=== PATIENT | male | born 1960 | race Caucasian/White ===

== ENCOUNTER 2018-03-13 22:25 | Emergency (ER) | payer MEDICARE ==
[~2018-03-13] VITALS: Ht 175.2 cm; Wt 56.7 kg
[~2018-03-13 22:25] MED LIST: ALBUTEROL0.09 MG/A2 INH; BACTRIM DS 8001 TA1 PO; DAYPRO600 M1 PO; DOXYCYCLINE HY100 M3 PO; KEFLEX500 MG PO; PREDNICOT20 MG PO; ROBAXIN750 MG PO; ROBITUSSIN AC 110 ML PO; TESSALON PERLE200 MG PO; VICODIN 5/500 505 MG PO; Vicodin 5/500 505 MG PO; XANAX0.25 MG PO; ZITHROMAX Z PA250 MG PO
[2018-03-13 22:58] VITALS: BP 181/92
== END 2018-03-13 23:39 | disposition left against medical advice (07) ==
LOC: ED 22:25
DX: S50.811A Abrasion of right forearm, initial encounter (principal); S50.812A Abrasion of left forearm, initial encounter; Z53.21 Procedure and treatment not carried out due to patient leaving prior to being seen by health care provider; W10.8XXA Fall (on) (from) other stairs and steps, initial encounter; Y93.89 Activity, other specified; Y92.89 Other specified places as the place of occurrence of the external cause; Y99.8 Other external cause status

== ENCOUNTER 2018-03-20 09:44 | Emergency (ER) | payer OTHER, MEDICARE ==
[~2018-03-20] VITALS: Ht 175.2 cm; Wt 101.6 kg
[2018-03-20 11:10] VITALS: BP 130/109
[2018-03-20] MEDS ORDERED: ROBAXIN500 M1 PO (14:42)
[2018-03-20] MEDS ORDERED: IBUPROFEN600 MG PO (14:42)
== END 2018-03-20 14:56 | disposition home or self-care (01) ==
LOC: ED 09:44
DX: S13.4XXA Sprain of ligaments of cervical spine, initial encounter (principal); M25.551 Pain in right hip; M54.6 Pain in thoracic spine; M54.5 Low back pain; Z88.5 Allergy status to narcotic agent; V49.88XA Car occupant (driver) (passenger) injured in other specified transport accidents, initial encounter; Y93.89 Activity, other specified; Y92.413 State road as the place of occurrence of the external cause; Y99.9 Unspecified external cause status

== ENCOUNTER 2021-03-07 14:54 | Emergency (ER) | payer MEDICARE ==
[~2021-03-07 14:54] MED LIST changes: +IBUPROFEN600 MG PO; +ROBAXIN500 M1 PO
[2021-03-07 15:06] VITALS: BP 194/100
[2021-03-07 15:26] LABS: BASO % 0.5 % (0.0-1.0); EOS # 0.2 10*3/uL (0.0-0.4); EOS % 3.1 % (1.0-4.0); HEMATOCRIT 44.7 % (42.0-52.0); LYMPH # 2.2 10*3/uL (1.3-4.4); LYMPH % 28.9 % (27.0-41.0); MEAN CELL VOLUME 90.5 fl (80.0-94.0); MEAN CORPUSCULAR HGB 29.4 pg (27.0-31.0); MEAN CORPUSCULAR HGB CONC 32.4 g/dl (33.0-37.0); MEAN PLATELET VOLUME 9.8 fl (9.6-12.3); MONO # 0.7 10*3/uL (0.1-1.0); MONO % 9.9 % (3.0-9.0); NEUT # 4.3 10*3/uL (2.3-7.9); NEUT % 57.3 % (47.0-73.0); PLATELET COUNT AUTOMATED 272 10*3/uL (130-400); RED BLOOD COUNT 4.94 10*6/uL (4.50-5.90); RED CELL DISTRI WIDTH 12.6 % (0-14.5); WHITE BLOOD COUNT 7.5 10*3/uL (4.8-10.8)
[2021-03-07 15:42] LABS: ALBUMIN 3.5 gm/dl (3.1-4.5); ALKALINE PHOSPHATASE 66 U/L (45-117); BUN 14 mg/dl (7-24); CHLORIDE 106 mmol/L (98-107); CREATININE 0.96 mg/dL (0.70-1.30); POTASSIUM 4.2 mmol/L (3.5-5.1); SGOT/AST 10 IU/L (3-35); SGPT/ALT 23 U/L (12-78); SODIUM 142 mmol/L (136-145); URIC ACID 5.2 mg/dL (3.5-7.2)
[2021-03-07] MEDS ORDERED: PREDNISONE50 MG PO (15:52)
== END 2021-03-07 16:08 | disposition home or self-care (01) ==
LOC: ED 14:54
PROVIDERS: Nurse Practitioner Family
DX: M10.071 Idiopathic gout, right ankle and foot (principal); Z88.5 Allergy status to narcotic agent; Z79.899 Other long term (current) drug therapy; Z79.2 Long term (current) use of antibiotics

== ENCOUNTER 2021-08-30 21:06 | Emergency (ER) | payer MEDICARE ==
[~2021-08-30] VITALS: Ht 175.2 cm; Wt 78.0 kg
[~2021-08-30 21:06] MED LIST changes: +PREDNISONE50 MG PO
[2021-08-30] MEDS ORDERED: CEPHALEXIN500 M1 PO (23:07)
[2021-08-30] MEDS ORDERED: VIBRAMYCIN100 MG PO ×2 (23:21)
[2021-08-31 00:28] VITALS: BP 202/127
== END 2021-08-31 00:29 | disposition home or self-care (01) ==
LOC: ED 21:06
DX: M86.671 Other chronic osteomyelitis, right ankle and foot (principal); Z88.8 Allergy status to other drugs, medicaments and biological substances; Z87.891 Personal history of nicotine dependence

== ENCOUNTER 2021-08-31 17:50 | Inpatient (IN) | payer MEDICARE ==
[~2021-08-31] VITALS: Ht 175.2 cm; Wt 92.7 kg
[~2021-08-31 17:50] MED LIST changes: +CEPHALEXIN500 M1 PO; +VIBRAMYCIN100 MG PO
[2021-08-31 18:38] VITALS: BP 163/136
[2021-08-31 18:53] VITALS: BP 182/102
[2021-08-31 20:09] VITALS: BP 192/104
[2021-08-31 20:48] LABS: ALKALINE PHOSPHATASE 74 U/L (45-117); BUN 17 mg/dl (7-24); CHLORIDE 108 mmol/L (98-107); CREATININE 0.92 mg/dL (0.70-1.30); SGOT/AST 15 IU/L (3-35); SGPT/ALT 25 U/L (12-78); SODIUM 138 mmol/L (136-145); TOTAL PROTEIN 7.5 gm/dL (6.4-8.2)
[2021-08-31 20:53] VITALS: BP 188/112
[2021-08-31 20:54] VITALS: BP 188/112
[2021-08-31 21:20] LABS: BASO # 0.1 10*3/uL (0.0-0.1); BASO % 0.6 % (0.0-1.0); EOS # 0.2 10*3/uL (0.0-0.4); EOS % 2.1 % (1.0-4.0); HEMATOCRIT 46.9 % (42.0-52.0); LYMPH # 3.1 10*3/uL (1.3-4.4); LYMPH % 32.1 % (27.0-41.0); MEAN CELL VOLUME 87.3 fl (80.0-94.0); MEAN CORPUSCULAR HGB 28.7 pg (27.0-31.0); MEAN CORPUSCULAR HGB CONC 32.8 g/dl (33.0-37.0); MEAN PLATELET VOLUME 10.3 fl (9.6-12.3); MONO # 0.8 10*3/uL (0.1-1.0); MONO % 8.6 % (3.0-9.0); NEUT # 5.5 10*3/uL (2.3-7.9); NEUT % 56.3 % (47.0-73.0); PLATELET COUNT AUTOMATED 285 10*3/uL (130-400); RED BLOOD COUNT 5.37 10*6/uL (4.50-5.90); RED CELL DISTRI WIDTH 12.4 % (0-14.5); WHITE BLOOD COUNT 9.7 10*3/uL (4.8-10.8)
[2021-08-31 22:41] VITALS: BP 180/90
[2021-09-01] VITALS (7 sets, daily range): BP systolic 154–189; BP diastolic 81–102
[2021-09-01 06:14] LABS: BASO % 0.6 % (0.0-1.0); EOS # 0.2 10*3/uL (0.0-0.4); EOS % 3.3 % (1.0-4.0); HEMATOCRIT 41.4 % (42.0-52.0); LYMPH # 2.2 10*3/uL (1.3-4.4); LYMPH % 31.9 % (27.0-41.0); MEAN CELL VOLUME 87.7 fl (80.0-94.0); MEAN CORPUSCULAR HGB 29.4 pg (27.0-31.0); MEAN CORPUSCULAR HGB CONC 33.6 g/dl (33.0-37.0); MEAN PLATELET VOLUME 10.5 fl (9.6-12.3); MONO # 0.7 10*3/uL (0.1-1.0); MONO % 9.8 % (3.0-9.0); NEUT # 3.8 10*3/uL (2.3-7.9); NEUT % 54.1 % (47.0-73.0); PLATELET COUNT AUTOMATED 265 10*3/uL (130-400); RED BLOOD COUNT 4.72 10*6/uL (4.50-5.90); RED CELL DISTRI WIDTH 12.5 % (0-14.5)
[2021-09-01 06:20] LABS: ACT PARTIAL THROMBO TIME 26.9 SECONDS (20.0-32.1)
[2021-09-01 06:31] LABS: ALKALINE PHOSPHATASE 63 U/L (45-117); BUN 16 mg/dl (7-24); CHLORIDE 107 mmol/L (98-107); CHOLESTEROL 135 mg/dL (<200); LDL CHOLESTEROL 69 mg/dL (9-159); SGOT/AST 13 IU/L (3-35); SGPT/ALT 21 U/L (12-78); SODIUM 139 mmol/L (136-145); TOTAL PROTEIN 6.4 gm/dL (6.4-8.2); TRIGLYCERIDES 134 mg/dl (<150); URIC ACID 4.3 mg/dL (3.5-7.2)
[2021-09-01 06:35] LABS: FREE T4 0.98 ng/dl (0.76-1.46)
[2021-09-01 07:35] LABS: VITAMIN D, 25-HYDROXY 13.3 ng/mL (30-100)
[2021-09-02] VITALS: BP 156/84
[2021-09-02 08:00] VITALS: BP 143/92
[2021-09-02 12:00] VITALS: BP 151/82
[2021-09-02] MEDS ORDERED: LISINOPRIL10 M1 PO (15:02)
[2021-09-02] MEDS ORDERED: AMLODIPINE BESYL5 MG PO (15:02)
[2021-09-02] MEDS ORDERED: GLUCOPHAGE500 MG PO (15:03)
[2021-09-02] MEDS ORDERED: VITAMIN D3125 MC1 PO (15:03)
== END 2021-09-02 15:30 | disposition home or self-care (01) | DRG 563 ==
LOC: ED 17:50 → 4E 20:44 → EDHOLD 20:44 → 4E 22:25
PROVIDERS: Internal Medicine; Nurse Practitioner Family; ADMIT Internal Medicine; ATTEND Internal Medicine
DX: S92.421A Displaced fracture of distal phalanx of right great toe, initial encounter for closed fracture (principal); J44.1 Chronic obstructive pulmonary disease with (acute) exacerbation; I10 Essential (primary) hypertension; F17.210 Nicotine dependence, cigarettes, uncomplicated; X58.XXXA Exposure to other specified factors, initial encounter; M10.9 Gout, unspecified; E87.8 Other disorders of electrolyte and fluid balance, not elsewhere classified; B35.1 Tinea unguium; F10.11 Alcohol abuse, in remission; I16.0 Hypertensive urgency; E83.51 Hypocalcemia; E11.65 Type 2 diabetes mellitus with hyperglycemia; M19.90 Unspecified osteoarthritis, unspecified site; Z71.6 Tobacco abuse counseling; Y93.9 Activity, unspecified; S13.9XXS Sprain of joints and ligaments of unspecified parts of neck, sequela; Y92.89 Other specified places as the place of occurrence of the external cause; Y99.8 Other external cause status; Z88.5 Allergy status to narcotic agent; Z79.899 Other long term (current) drug therapy

== ENCOUNTER 2021-09-03 09:01 | Inpatient (IN) | payer MEDICARE ==
[~2021-09-03] VITALS: Ht 167.6 cm; Wt 90.4 kg
[~2021-09-03 09:01] MED LIST changes: +AMLODIPINE BESYL5 MG PO; +GLUCOPHAGE500 MG PO; +LISINOPRIL10 M1 PO; +VITAMIN D3125 MC1 PO
[2021-09-03 09:04] VITALS: BP 160/87
[2021-09-03 09:57] LABS: BUN 27 mg/dl (7-24); CHLORIDE 107 mmol/L (98-107); CREATININE 1.27 mg/dL (0.70-1.30); SODIUM 142 mmol/L (136-145)
[2021-09-03 10:02] VITALS: BP 158/82
[2021-09-03 11:56] VITALS: BP 160/87
[2021-09-03 11:57] VITALS: BP 169/91
[2021-09-03 12:11] LABS: BASO % 0.2 % (0.0-1.0); EOS # 0.1 10*3/uL (0.0-0.4); EOS % 0.3 % (1.0-4.0); HEMATOCRIT 47.3 % (42.0-52.0); LYMPH # 2.3 10*3/uL (1.3-4.4); LYMPH % 13.4 % (27.0-41.0); MEAN CELL VOLUME 88.2 fl (80.0-94.0); MEAN CORPUSCULAR HGB 28.7 pg (27.0-31.0); MEAN CORPUSCULAR HGB CONC 32.6 g/dl (33.0-37.0); MEAN PLATELET VOLUME 10.2 fl (9.6-12.3); MONO # 1.4 10*3/uL (0.1-1.0); MONO % 8.1 % (3.0-9.0); NEUT # 13.3 10*3/uL (2.3-7.9); NEUT % 77.6 % (47.0-73.0); PLATELET COUNT AUTOMATED 298 10*3/uL (130-400); RED BLOOD COUNT 5.36 10*6/uL (4.50-5.90); RED CELL DISTRI WIDTH 13.2 % (0-14.5); WHITE BLOOD COUNT 17.1 10*3/uL (4.8-10.8)
[2021-09-03 12:21] LABS: ACT PARTIAL THROMBO TIME 24.4 SECONDS (20.0-32.1)
[2021-09-03 13:59] VITALS: BP 162/88
[2021-09-03 14:30] VITALS: BP 146/85
== END 2021-09-03 17:06 | disposition left against medical advice (07) | DRG 282 ==
LOC: ED 09:01 → EDHOLD 12:01 → 4E 13:19
PROVIDERS: Emergency Medicine; ADMIT Internal Medicine; ATTEND Internal Medicine
DX: I21.4 Non-ST elevation (NSTEMI) myocardial infarction (principal); Z53.29 Procedure and treatment not carried out because of patient's decision for other reasons; I10 Essential (primary) hypertension; E78.5 Hyperlipidemia, unspecified; E11.9 Type 2 diabetes mellitus without complications; I20.8 Other forms of angina pectoris; F17.200 Nicotine dependence, unspecified, uncomplicated; Z71.6 Tobacco abuse counseling; Z88.5 Allergy status to narcotic agent; Z79.899 Other long term (current) drug therapy

== ENCOUNTER 2022-10-26 10:33 | Emergency (ER) | payer MEDICARE ==
[~2022-10-26] VITALS: Ht 175.2 cm; Wt 100.7 kg
[2022-10-26 11:12] LABS: BASO % 0.6 % (0.0-1.0); EOS # 0.3 10*3/uL (0.0-0.4); EOS % 4.4 % (1.0-4.0); HEMATOCRIT 44.3 % (42.0-52.0); LYMPH # 1.7 10*3/uL (1.3-4.4); MEAN CELL VOLUME 88.6 fl (80.0-94.0); MEAN CORPUSCULAR HGB CONC 32.7 g/dl (33.0-37.0); MEAN PLATELET VOLUME 10.2 fl (9.6-12.3); MONO # 0.6 10*3/uL (0.1-1.0); MONO % 8.4 % (3.0-9.0); NEUT % 60.3 % (47.0-73.0); PLATELET COUNT AUTOMATED 269 10*3/uL (130-400); RED CELL DISTRI WIDTH 12.7 % (0-14.5); WHITE BLOOD COUNT 6.7 10*3/uL (4.8-10.8)
[2022-10-26 11:23] LABS: ACT PARTIAL THROMBO TIME 28.4 SECONDS (20.0-32.1)
[2022-10-26 11:35] LABS: ALKALINE PHOSPHATASE 64 U/L (46-116); BUN 12 mg/dl (9-23); CHLORIDE 107 mmol/L (98-107); LIPASE 26 U/L (12-53); POTASSIUM 3.7 mmol/L (3.4-5.1); SGPT/ALT 20 U/L (10-49); TOTAL PROTEIN 6.9 gm/dL (6.0-8.0)
[2022-10-26 13:21] VITALS: BP 170/104
[2022-10-26] MEDS ORDERED: PREDNISONE10 MG PO ×2 (14:18)
[2022-10-26] MEDS ORDERED: ZITHROMAX250 MG PO ×2 (14:18)
== END 2022-10-26 14:32 | disposition left against medical advice (07) ==
LOC: ED 10:33
PROVIDERS: Emergency Medicine
DX: J44.1 Chronic obstructive pulmonary disease with (acute) exacerbation (principal); Z88.5 Allergy status to narcotic agent; F17.200 Nicotine dependence, unspecified, uncomplicated; F10.10 Alcohol abuse, uncomplicated

== ENCOUNTER 2022-12-03 17:09 | Emergency (ER) | payer MEDICARE ==
[~2022-12-03] VITALS: Ht 175.2 cm; Wt 98.9 kg
[~2022-12-03 17:09] MED LIST changes: +PREDNISONE10 MG PO; +ZITHROMAX250 MG PO
[2022-12-03 17:24] LABS: BASO # 0.1 10*3/uL (0.0-0.1); BASO % 0.5 % (0.0-1.0); EOS # 0.2 10*3/uL (0.0-0.4); EOS % 1.7 % (1.0-4.0); HEMATOCRIT 43.6 % (42.0-52.0); LYMPH # 2.4 10*3/uL (1.3-4.4); LYMPH % 20.7 % (27.0-41.0); MEAN CELL VOLUME 86.5 fl (80.0-94.0); MEAN CORPUSCULAR HGB 28.8 pg (27.0-31.0); MEAN CORPUSCULAR HGB CONC 33.3 g/dl (33.0-37.0); MEAN PLATELET VOLUME 9.9 fl (9.6-12.3); MONO % 8.5 % (3.0-9.0); NEUT # 7.8 10*3/uL (2.3-7.9); NEUT % 68.2 % (47.0-73.0); PLATELET COUNT AUTOMATED 287 10*3/uL (130-400); RED BLOOD COUNT 5.04 10*6/uL (4.50-5.90); RED CELL DISTRI WIDTH 12.9 % (0-14.5); WHITE BLOOD COUNT 11.5 10*3/uL (4.8-10.8)
[2022-12-03 17:45] LABS: POTASSIUM 3.9 mmol/L (3.4-5.1); TOTAL PROTEIN 7.3 gm/dL (6.0-8.0)
[2022-12-03 18:00] VITALS: BP 160/103
[2022-12-03] MEDS ORDERED: TRAMADOL HCL50 MG PO (18:53)
== END 2022-12-03 20:35 | disposition left against medical advice (07) ==
LOC: ED 17:09
PROVIDERS: Emergency Medicine
DX: K40.90 Unilateral inguinal hernia, without obstruction or gangrene, not specified as recurrent (principal); M79.642 Pain in left hand; I10 Essential (primary) hypertension; Z88.5 Allergy status to narcotic agent; F17.200 Nicotine dependence, unspecified, uncomplicated; F10.10 Alcohol abuse, uncomplicated

== ENCOUNTER 2024-04-13 19:40 | Emergency (ER) | payer MEDICARE ==
[~2024-04-13] VITALS: Ht 172.7 cm; Wt 100.7 kg
[~2024-04-13 19:40] MED LIST changes: +TRAMADOL HCL50 MG PO
[2024-04-13 19:49] VITALS: BP 176/119
[2024-04-13] MEDS ORDERED: Tdap Vaccine 0.5 ML SYR (Adult Vaccine) IM ONE (20:00)
[2024-04-13 20:13] LABS: BASO # 0.1 10*3/uL (0.0-0.1); BASO % 0.6 % (0.0-1.0); EOS # 0.2 10*3/uL (0.0-0.4); EOS % 1.7 % (1.0-4.0); HEMATOCRIT 43.6 % (42.0-52.0); MEAN CELL VOLUME 87.4 fl (80.0-94.0); MEAN CORPUSCULAR HGB 29.1 pg (27.0-31.0); MEAN CORPUSCULAR HGB CONC 33.3 g/dl (33.0-37.0); MEAN PLATELET VOLUME 9.6 fl (9.6-12.3); MONO # 0.7 10*3/uL (0.1-1.0); NEUT # 4.7 10*3/uL (2.3-7.9); PLATELET COUNT AUTOMATED 269 10*3/uL (130-400); RED BLOOD COUNT 4.99 10*6/uL (4.50-5.90); RED CELL DISTRI WIDTH 12.8 % (0-14.5); WHITE BLOOD COUNT 8.7 10*3/uL (4.8-10.8)
[2024-04-13 20:24] LABS: ACT PARTIAL THROMBO TIME 25.2 SECONDS (20.0-32.1)
[2024-04-13 20:33] LABS: BUN 19 mg/dl (9-23); CHLORIDE 103 mmol/L (98-107); POTASSIUM 4.4 mmol/L (3.4-5.1)
== END 2024-04-13 21:40 | disposition home or self-care (01) ==
LOC: ED 19:40
PROVIDERS: Internal Medicine
DX: T20.10XA Burn of first degree of head, face, and neck, unspecified site, initial encounter (principal); H54.61 Unqualified visual loss, right eye, normal vision left eye; J44.9 Chronic obstructive pulmonary disease, unspecified; F17.200 Nicotine dependence, unspecified, uncomplicated; Z88.5 Allergy status to narcotic agent; X19.XXXA Contact with other heat and hot substances, initial encounter; Y93.89 Activity, other specified; Y92.89 Other specified places as the place of occurrence of the external cause; Y99.8 Other external cause status